=== PATIENT | female | born 1950 | race African-American/Black ===

== ENCOUNTER 2018-11-12 09:22 | Day surgery (SDC) | payer OTHER, MEDICARE ==
[2018-11-12] MEDS ORDERED: methylPREDNISolone ACET (DEPO) 40 MG/1 ML VIAL ONE (12:08)
[2018-11-12] MEDS ORDERED: BUPIVACAINE HCL/PF 0.5% (5MG/ML) 10 ML VIAL ONE (12:12)
[2018-11-12] MEDS ORDERED: MIDAZOLAM HCL 2 MG/2 ML SINGLE DOSE VIAL ONE (12:23)
[2018-11-12] MEDS ORDERED: PROPOFOL 20 ML ONE (12:32)
[2018-11-12] MEDS ORDERED: ONDANSETRON 4 MG/2 ML VIAL ONE (12:33)
[2018-11-12] MEDS ORDERED: DEXAMETHASONE SOD PHOSPHATE 4 MG/1 ML VIAL ONE (12:33)
[2018-11-12] MEDS ORDERED: ceFAZolin SODIUM 1 GM VIAL ONE (12:33)
[2018-11-12] MEDS ORDERED: KETOROLAC TROMETHAMINE 30 MG/1 ML VIAL ONE (12:33)
[2018-11-12] MEDS ORDERED: oxyCODONE HCL 5 MG TABLET PO PRN ×2 (12:49)
[2018-11-12] MEDS ORDERED: PROMETHAZINE HCL 25 MG/1 ML VIAL IVPUSH PRN (12:49)
[2018-11-12] MEDS ORDERED: ONDANSETRON 4 MG/2 ML VIAL IVPUSH PRN (12:49)
[2018-11-12 15:40] VITALS: BP 116/82; PULSE 54; TEMP 97.9
--- NOTE | 2018-11-13 07:01 | OP ---
DATE OF OPERATION: 11/12/2018 PREOPERATIVE DIAGNOSIS: Spinal instability. POSTOPERATIVE DIAGNOSIS: Spinal instability. PROCEDURE PERFORMED: Lumbar facet block at the L4-L5 level left and right sides under fluoroscopic guidance. SURGEON: Thaddeus Webber MD LAST CODE STRIPER: Mehdi Morales RN ANESTHESIA: Wilberto Mejía MD, monitored anesthesia care. DESCRIPTION OF PROCEDURE: The procedure consisted of the patient being brought into the operating room and gently transferred from the stretcher to the OR table with all bony prominences padded. The patient was given intravenous antibiotics and sterile technique throughout the procedure to minimize the risk of infection. A complete risk, benefit, alternative discussion was conducted with the patient, which was inclusive of, but not limited to, infection, bleeding, , paralysis, increased pain, need for repeat surgeries. The patient asked questions and understood the procedure. Following sterile preparation and draping of the lumbar spine, the patient was given an appropriate time-out, which was inclusive of, but not limited to, site of surgery, type of surgery, anesthesiologist, surgeon. Following sterile preparation and draping of the patient, fluoroscopic guidance was used to introduce under sterile conditions a sterile needle of 22-gauge spinal type at the left and right L4-L5 facets. A solution of Depo-Medrol 40 mg/mL 1 mL and Marcaine 4 mL was instilled in each of the facet joints. The needle was withdrawn. Sterile dressings were applied. The patient was then gentle awoken from anesthesia and transferred from the operating room to the recovery room in satisfactory condition. There were no intraoperative complications. Alycia [id number]
== END 2018-11-12 15:40 | disposition home or self-care (01) ==
LOC: FASU 09:22
PROVIDERS: ATTEND Orthopaedic Surgery
PROC: BR16YZZ Fluoroscopy of Lumbar Facet Joint(s) using Other Contrast (ICD-10-PCS; 2018-11-12)
PROC: 3E0T33Z Introduction of Anti-inflammatory into Peripheral Nerves and Plexi, Percutaneous Approach (ICD-10-PCS; principal; 2018-11-12 12:34)
DX: M53.2X6 Spinal instabilities, lumbar region (principal)
CPT/HCPCS: 72100-TC-FY; 76000-TC-FY; 94760

== ENCOUNTER 2018-11-26 05:57 | Day surgery (SDC) | payer OTHER, MEDICARE ==
[2018-11-24 12:15] VITALS: BMI 20.1
[2018-11-26] MEDS ORDERED: methylPREDNISolone ACET (DEPO) 40 MG/1 ML VIAL ONE (09:36)
[2018-11-26] MEDS ORDERED: BUPIVACAINE HCL/PF 0.5% (5MG/ML) 10 ML VIAL ONE (09:36)
[2018-11-26] MEDS ORDERED: ONDANSETRON 4 MG/2 ML VIAL ONE (09:51)
[2018-11-26] MEDS ORDERED: KETOROLAC TROMETHAMINE 30 MG/1 ML VIAL ONE (09:51)
[2018-11-26] MEDS ORDERED: PROPOFOL 20 ML ONE (09:52)
[2018-11-26] MEDS ORDERED: ceFAZolin SODIUM 1 GM VIAL ONE ×2 (09:52)
[2018-11-26] MEDS ORDERED: PROMETHAZINE HCL 25 MG/1 ML VIAL IVPUSH PRN (10:12)
[2018-11-26] MEDS ORDERED: oxyCODONE HCL 5 MG TABLET PO PRN (10:12)
[2018-11-26] MEDS ORDERED: ONDANSETRON 4 MG/2 ML VIAL IVPUSH PRN (10:12)
[2018-11-26 10:54] VITALS: TEMP 98.6
--- NOTE | 2018-11-26 11:15 | OP ---
DATE OF OPERATION: 11/26/2018 PREOPERATIVE DIAGNOSIS: Lumbar spinal instability. POSTOPERATIVE DIAGNOSIS: Lumbar spinal instability. PROCEDURE PERFORMED: Lumbar facet block, L5-S1, left and right sides under fluoroscopic guidance. SURGEON: Prachi Webber MD MEDICAL TECHNOLOGIST BLOOD BANK: ALEX Quispe ANESTHESIOLOGIST: Roger Hogan MD ANESTHESIA: Monitored anesthesia care. DESCRIPTION OF PROCEDURE: The procedure consisted of the patient being brought into the operating room and gently transferred from the stretcher to the OR table with all bony prominences well-padded. The lumbar spine was prepared and draped in a sterile fashion. Patient was given intravenous antibiotics and sterile technique throughout the procedure to minimize the risk for infection. After complete risk, benefit and alternative discussion was conducted with the patient, which was inclusive of, but not limited to, infection, bleeding, , paralysis, increased pain and need for repeat surgery. The patient asked questions, understood the nature of the procedure and desired to proceed with surgical treatment. Following sterile preparation and draping of the lumbar spine, an appropriate time-out was conducted which was inclusive of, but not limited to, the type of surgery, site of surgery, surgeon, anesthesiologist. Following sterile preparation and draping of the lumbar spine, the lumber spine was evaluated fluoroscopically, and 22-gauge spinal needles were introduced at the L5-S1 level on the left and right sides. A solution of Depo-Medrol 40 mg/mL and 4 mL of Marcaine was instilled into each of the facets. The needles were withdrawn. Sterile dressings were applied. The patient was then gently awoken from anesthesia without incident, transferred from the operating room to the recovery room in satisfactory condition. There were no intraoperative complications. PRACHI WEBBER M.D. [id number]
[2018-11-26 11:26] VITALS: BP 110/54; PULSE 84
== END 2018-11-26 11:55 | disposition home or self-care (01) ==
LOC: FASU 05:57
PROVIDERS: ATTEND Orthopaedic Surgery
PROC: 3E0T3BZ Introduction of Anesthetic Agent into Peripheral Nerves and Plexi, Percutaneous Approach (ICD-10-PCS; 2018-11-26)
PROC: BR16YZZ Fluoroscopy of Lumbar Facet Joint(s) using Other Contrast (ICD-10-PCS; 2018-11-26)
PROC: 3E0T33Z Introduction of Anti-inflammatory into Peripheral Nerves and Plexi, Percutaneous Approach (ICD-10-PCS; principal; 2018-11-26 10:02)
DX: M53.2X6 Spinal instabilities, lumbar region (principal)
CPT/HCPCS: 72100-TC-FY; 94760